=== PATIENT | male | born 1970 | race American Indian/Alaskan Native ===

== ENCOUNTER 2020-11-28 12:28 | Outpatient (CLI) | payer OTHER | END 2020-11-28 12:29 | disposition home or self-care (01) | LOC: PF 12:28 | PROVIDERS: ATTEND Internal Medicine | DX: R06.02 Shortness of breath (principal); I42.0 Dilated cardiomyopathy; I11.0 Hypertensive heart disease with heart failure; I50.9 Heart failure, unspecified; R73.03 Prediabetes; E78.00 Pure hypercholesterolemia, unspecified | CPT/HCPCS: 94060 ==